=== PATIENT | female | born 1995 | race Caucasian/White ===

== ENCOUNTER → 2017-03-17 | Day surgery (SDC) | payer OTHER ==
[2017-02-28 09:19] VITALS: Ht 160 cm; Wt 68.2 kg
[~2017-03-17] VITALS: Ht 160 cm; Wt 68.2 kg
[~2017-03-17] MED LIST: AMPH20TA2 PO; ATROPINE SULFATE 0.1 MG/ML 5ML SYR IV PRN; BCPILLS PO; BUPIVACAINE 0.5 % 5 MG/1 ML MPF 30ML VIAL ONE; CEFAZOLIN 2000 MG/60 ML D5W IV SCH; DEXAMETHASONE SOD INJ 4 MG/ML VIAL IV PRN; DEXAMETHASONE SOD INJ 4 MG/ML VIAL ONE; ESMOLOL HCL 10 MG/ML 10 ML VIAL ONE; EpHEDrine SULFATE INJ 50 MG/ML AMP IV PRN; FENTANYL CITRATE INJ 50 MCG/1 ML 2 ML VIAL IV PRN; FENTANYL CITRATE INJ 50 MCG/1 ML 2 ML VIAL ONE; GLYCOPYRROLATE INJ 0.2 MG/ML VIAL ONE; KETOROLAC TROMETHAMINE 30 MG/ML VIAL IV. PRN; KETOROLAC TROMETHAMINE 30 MG/ML VIAL ONE; LABETALOL HCL IV 5 MG/ML 20ML IV PRN; LACTATED RINGER'S 1000ML 1,000 ML IV SCH; LIDOCAINE HCL 2% 2 ML VIAL (20MG/ML) ONE; METOCLOPRAMIDE HCL INJ 5 MG/ML 2 ML VIAL IV PRN; MIDAZOLAM HCL 1 MG/ML 2ML VIAL ONE; MoRPHine SULFATE 10 MG/ML CARP/VIAL IV PRN; NEOSTIGMINE METHYLSULFATE 5 MG/5 ML SYR ONE; ONDANSETRON INJ 2 MG/ML 2 ML VIAL IV PRN; ONDANSETRON INJ 2 MG/ML 2 ML VIAL ONE; OXYC-57 PO; OXYCODONE/ACETAMINOPHEN 5-325 TAB PO PRN; PHENYLEPHRINE 100MCG/ML 5ML SYR IV PRN; PROPOFOL IV EMULSION 10 MG/ML 20 ML VIAL IV ONE; ROCURONIUM BROMIDE 10 MG/ML 5 ML VIAL ONE; SODIUM CHLORIDE 0.9% 1000ML 1,000 ML IV SCH
--- NOTE | 2017-03-17 06:45 | History & Physical Bridge Note ---
H&P Re-Evaluation Bridge Note: I have examined the patient, reviewed the History & Physical and in the interval since the performance of the History & Physical I have noted the following changes of clinical significance: No changes noted family at bedside pt marked X2
--- NOTE | 2017-03-17 08:17 | [facility] Post Operative Brief Note ---
Immediate Operative Summary Operative Date Mar 17, 2017. Pre-Operative Diagnosis Multiple Lipomas, Lower Back Post-Operative Diagnosis Same Procedure(s) Performed Lower Back Soft Tissue Mass Excision Surgeon Dr. Bang [facility] Manager Surgeon(s) Larry Rosales PA-C Estimated Blood Loss 4 ML Findings shaheed 4cm multiple lipomas both paraspinous site level L5 Specimens A. Lower Back Masses
--- NOTE | 2017-03-17 08:20 | Discharge Instructions-SurgCtr ---
Discharge Instructions Date of Service Mar 17, 2017. Visit Reason for Visit: Lower Back, Soft Tissue Mass Discharge Discharge Diagnosis / Problem: Lower Back, Soft Tissue Mass Discharge Goals Goal(s): Decrease discomfort, Improve function Activity Recommendations Activity Limitations: as noted below Lifting Limitations: no more than 10 pounds Exercise/Sports Limitations: until after follow-up appointment May Resume Sexual Activity: after follow-up appointment Shower/Bathe: tomorrow Driving or Machine Use: resume 3 days after discharge Anesthesia . Post Anesthesia Instructions: If you have had General Anesthesia or IV Sedation: * Do not drive today. * Resume driving when surgeon permits. * Do not make important decisions or sign legal documents today. * Call surgeon for: 1. Temperature elevations greater than 101 degrees F. 2. Uncontrollable pain. 3. Excessive bleeding. 4. Persistent nausea and vomiting. 5. Medication intolerance (nausea, vomiting or rash). * For nausea and vomiting use only clear liquids such as: tea, soda, bouillon until nausea subsides, then gradually increase diet as tolerated. * If you have any concerns or questions, call your surgeon's office. If physician is unavailable and it is an emergency, call 911 or go to the nearest emergency room. . Instructions / Follow-Up Instructions / Follow-Up Please call the office at [phone] to make an appointment to have your sutures removed. Sutures can be removed in 7-10 days. Please make a follow-up appointment with Dr. Bang and/or Sidra Rosales PA-C in 2 weeks for post-operative evaluation. Any questions or concerns, please call the office at [phone]. Diet Recommendations Home Diet: no limitations, resume previous diet Procedures Procedures Performed: Lower Back Soft Tissue Mass Excision Pending Studies Studies pending at discharge: yes List of pending studies: Pathology report. Medical Emergencies . Who to Call and When: Medical Emergencies: If at any time you feel your situation is an emergency, please call 911 immediately. . Non-Emergent Contact Non-Emergency issues call your: Primary Care Provider, Surgeon Call Non-Emergent contact if: temperature is above 101.5, your pain is not controlled, wound has increased drainage, wound has increased redness . . "Provider Documentation" section prepared by Sidra Rosales. . [place] Drug Monitoring Program Search Results: patient reviewed within database, no issues identified
--- NOTE | 2017-03-17 08:58 | Anesthesia Progress Nt - [facility] ---
Anesthesia Post Op Note Date & Time Mar 17, 2017 at 08:58 Vital Signs Pain Intensity: 2 Vital Signs Past 12 Hours Date Time Temp Pulse Resp B/P (MAP) Pulse Ox O2 Delivery O2 Flow Rate FiO2 03/17/17 08:42 108/71 03/17/17 08:41 85 23 03/17/17 08:41 84 23 97 03/17/17 08:40 83 21 03/17/17 08:40 83 21 98 03/17/17 08:38 36.6 97 Room Air 03/17/17 08:37 104/70 03/17/17 08:35 83 14 98 03/17/17 08:35 83 14 03/17/17 08:32 107/75 03/17/17 08:30 89 17 03/17/17 08:30 90 17 98 03/17/17 08:27 110/73 03/17/17 08:25 74 20 100 03/17/17 08:25 74 20 03/17/17 08:24 74 19 100 03/17/17 08:24 74 19 03/17/17 08:24 74 19 03/17/17 08:24 74 19 100 03/17/17 08:22 116/76 03/17/17 08:22 116/76 03/17/17 08:19 83 21 100 03/17/17 08:19 83 21 100 03/17/17 08:19 82 21 03/17/17 08:19 82 21 03/17/17 08:17 123/90 03/17/17 08:17 123/90 03/17/17 08:14 86 21 03/17/17 08:14 86 21 100 03/17/17 08:14 86 21 100 03/17/17 08:14 86 21 03/17/17 08:12 109/78 03/17/17 08:12 109/78 03/17/17 08:11 120/93 03/17/17 08:11 120/93 03/17/17 08:09 37.0 102 18 120/93 98 Mask 6 03/17/17 06:31 36.6 98 18 123/86 (98) 97 Room Air Notes Mental Status: alert / awake / arousable, participated in evaluation Pt Amnestic to Procedure: Yes Nausea / Vomiting: adequately controlled Pain: adequately controlled Airway Patency, RR, SpO2: stable & adequate BP & HR: stable & adequate Hydration State: stable & adequate Anesthetic Complications: no major complications apparent
[2017-03-17 09:00] VITALS: TEMP 36.5
--- NOTE | 2017-03-17 09:15 | OPERATIVE REPORT ---
DATE OF OPERATION: 03/17/2017 PREOPERATIVE DIAGNOSIS: Recurrent paraspinous lipomas level L5. POSTOPERATIVE DIAGNOSIS: Same, approximately 4 cm in size each. PROCEDURE: Excision of multiple lipomas at the L5 level paraspinous bilaterally. SURGEON: Dr. Bang. JUNIOR COPYWRITER: Sidra Rosales PA-C. SUMMARY: The patient was brought into the operating room under general anesthesia in the prone position pillow had been placed underneath her abdomen. The area had been marked previously when the patient was awake. These appeared to be above a previous excised area bilateral L5 paraspinous. We at this point, we prepped the area Betadine solution and properly draped. We made an incision on the right side first, went through the old scar, deepened through subcutaneous tissue. Then we went on and identified multiple lipomatous areas that we took out. We were all the way down to the paraspinous tissue where we did not feel any more lipomas. Once this had been performed, we closed the area after hemostasis with interrupted 2-0 Vicryl suture and 4-0 nylon vertical mattress for skin edges. Attention was turned to the right side where similarly we had marked the area which appeared to be above the incision, but we used the same incision after using local anesthetic 0.5% Marcaine. Similarly went down to subcutaneous tissue deep in the paraspinal area we identified multiple lipomatous tissue and excised them. As mentioned, she had had previous excision. There was some scar tissue that we went through, but hemostasis was satisfactory, we closed the area in multiple layer 2-0 Dexon and 4-0 nylon vertical mattress. A dressing was applied over Steri-Strips. Procedure was tolerated well. She was taken to recovery room in good condition. Estimated blood loss approximately 4 mL. I attest to the content of the Intraoperative Record and any orders documented therein. Any exceptions are noted below. MTDD
[2017-03-17 09:20] VITALS: BP 106/70; PULSE 75; O2SAT 97
== END | disposition home or self-care (01) ==
LOC: X.SURG 06:21
PROVIDERS: ATTEND Surgery
DX: D17.79 Benign lipomatous neoplasm of other sites (principal); J45.30 Mild persistent asthma, uncomplicated; Z87.19 Personal history of other diseases of the digestive system; Z84.89 Family history of other specified conditions; Z83.3 Family history of diabetes mellitus; Z80.3 Family history of malignant neoplasm of breast; Z79.899 Other long term (current) drug therapy